=== PATIENT | female | born 1945 | race Caucasian/White ===

== ENCOUNTER 2020-07-27 22:00 | Emergency (ER) | payer MEDICARE, OTHER ==
[~2020-07-27] VITALS: Ht 167.6 cm; Wt 72.0 kg
[2020-07-27 22:03] VITALS: BP 217/64
[2020-07-27] MEDS ORDERED: TETanus/Pertussis (Acell)/Diphther VAC/PF (Tdap-Adult) 0.5ml syringe IMVAC ONE (23:05)
[2020-07-27] MEDS ORDERED: LIDOcaine 1% W/epiNEPHrine 1:200,000 10ml vial IJ ONE (23:05)
--- NOTE | 2020-07-28 16:19 | NUR ---
PT CALLED AND SPOKE WITH HER SISTER. PER DR FARIAS PT WAS NOTIFIED THAT SHE HAS A POSSIBLE RADIAL HEAD FX IN HER INJURED ARM AND THAT SHE COULD COME BACK IN FOR RE-EVALUATION. PT'S SISTER STATED THAT SHE WOULD CALL HER SISTER AND INFORM HER AND GET HER BACK IN THE ER [facility].
== END 2020-07-28 00:17 | disposition home or self-care (01) ==
LOC: ER 22:01
DX: S01.111A Laceration without foreign body of right eyelid and periocular area, initial encounter (principal); R51.9 Headache, unspecified; M25.561 Pain in right knee; M79.601 Pain in right arm; Z20.3 Contact with and (suspected) exposure to rabies; Z88.8 Allergy status to other drugs, medicaments and biological substances; W01.198A Fall on same level from slipping, tripping and stumbling with subsequent striking against other object, initial encounter; Y93.89 Activity, other specified; Y92.89 Other specified places as the place of occurrence of the external cause
CPT/HCPCS: 12011; 70450; 72125; 73090; 73564; 90471; 90715; 99285

== ENCOUNTER 2020-07-28 17:04 | Emergency (ER) | payer MEDICARE, OTHER ==
[~2020-07-28] VITALS: Ht 167.6 cm; Wt 72.7 kg
[2020-07-28 17:12] VITALS: BP 141/58
[2020-07-28] MEDS ORDERED: ibuprofen 200mg tablet PO ONE (17:25)
== END 2020-07-28 17:47 | disposition home or self-care (01) ==
LOC: ER 17:06
DX: S52.121A Displaced fracture of head of right radius, initial encounter for closed fracture (principal); M79.601 Pain in right arm; M25.561 Pain in right knee; Z88.8 Allergy status to other drugs, medicaments and biological substances; W01.0XXA Fall on same level from slipping, tripping and stumbling without subsequent striking against object, initial encounter; Y93.89 Activity, other specified; Y92.89 Other specified places as the place of occurrence of the external cause; Y99.8 Other external cause status
CPT/HCPCS: 99282

== ENCOUNTER 2020-08-02 11:08 | Emergency (ER) | payer MEDICARE, OTHER ==
[~2020-08-02] VITALS: Ht 167.6 cm; Wt 73.2 kg
[2020-08-02 11:16] VITALS: BP 120/75
== END 2020-08-02 11:52 | disposition home or self-care (01) ==
LOC: ER 11:08
DX: S50.01XA Contusion of right elbow, initial encounter (principal); S01.111D Laceration without foreign body of right eyelid and periocular area, subsequent encounter; W18.39XA Other fall on same level, initial encounter; Y93.9 Activity, unspecified; Y92.89 Other specified places as the place of occurrence of the external cause; Y99.8 Other external cause status
CPT/HCPCS: 99281

== ENCOUNTER 2021-10-26 07:32 | Day surgery (SDC) | payer MEDICARE, OTHER ==
[2021-10-24 10:06] LABS: CLARITY,URINE CLOUDY (Clear); COLOR,URINE YELLOW (Yellow); GLUCOSE, URINE NEGATIVE (Neg); KETONES,URINE NEGATIVE (Neg); LEUKOCYTE ESTERASE ,URINE LARGE (Neg); NITRITES, URINE POSITIVE (Neg); OCCULT BLOOD,URINE TRACE-INTACT (Neg); PROTEIN,URINE NEGATIVE (Neg); UROBILINOGEN,URINE 0.2 E.U/dL (0.2-1.0)
[2021-10-24 10:07] LABS: UA COLLECTION TYPE CLN CATCH MIDSTREAM
[2021-10-24 10:15] LABS: BASOPHILS # (AUTO) 0.1 X10'3 (0-0.2); BASOPHILS % (AUTO) 0.9 % (0-1); EOSINOPHILS # (AUTO) 0.2 X10'3 (0-0.9); EOSINOPHILS % (AUTO) 2.5 % (0-6); LYMPHOCYTES # (AUTO) 1.2 X10'3 (1.1-4.8); LYMPHOCYTES % (AUTO) 19.1 % (21-51); MEAN CORPUSCULAR HEMOGLOBIN 28.9 PG (27.0-31.0); MEAN CORPUSCULAR HGB CONC 33.6 g/dL (33.0-36.5); MEAN CORPUSCULAR VOLUME 86.1 FL (78-98); MEAN PLATELET VOLUME 7.4 FL (7.4-10.4); MONOCYTES # (AUTO) 0.3 X10'3 (0-0.9); MONOCYTES % (AUTO) 5.5 % (2-12); NEUTROPHILS # (AUTO) 4.6 X10'3 (1.8-7.7); PRE OP HEMATOCRIT 37.5 % (35.0-45.0); PRE OP HEMOGLOBIN 12.6 g/dL (12.0-16.0); PRE OP PLATELET COUNT 330 X10'3 (140-440); RED BLOOD COUNT 4.36 X10'6 (4.20-5.60); RED CELL DISTRIBUTION WIDTH 14.4 % (11.5-14.5)
[2021-10-24 10:17] LABS: SQUAMOUS EPITHELIAL CELL,UR MANY /LPF (FEW)
[2021-10-24 10:18] LABS: ALBUMIN 3.4 G/DL (3.4-5.0); ALKALINE PHOSPHATASE 92 IU/L (46-116); BLOOD UREA NITROGEN 8 MG/DL (7-18); BUN/CREATININE RATIO 10.4 (6.6-38.0); CALCIUM 8.2 MG/DL (8.5-10.1); CHLORIDE 106 MMOL/L (99-107); CREATININE 0.77 MG/DL (0.40-0.90); FINE GRANULAR CAST 0-3 /LPF (NEGATIVE); PRE OP ALT 18 U/L (30-65); PRE OP ANION GAP 9 (8-16); PRE OP AST 15 U/L (10-37); PRE OP BILIRUB, TOTAL 0.4 MG/DL (0.0-1.0); PRE OP GLUCOSE 100 MG/DL (70-104); PRE OP POTASSIUM 3.9 MMOL/L (3.4-5.1); PRE OP SODIUM 141 MMOL/L (135-145); TOTAL CARBON DIOXIDE 25.9 MMOL/L (24-32); TOTAL PROTEIN 6.8 G/DL (6.4-8.2); eGFR 73 ML/MIN
[2021-10-24 10:19] LABS: BACTERIA,URINE 4+ /HPF (Neg); WBC CLUMPS,URINE FEW /HPF (NEGATIVE)
[2021-10-24 10:20] LABS: WBC,URINE TNTC /HPF (0-4)
[2021-10-24 10:23] LABS: TRANSITIONAL EPI CELLS,URINE FEW /HPF
[~2021-10-26] VITALS: Ht 170.2 cm; Wt 77.6 kg
[2021-10-26] VITALS (11 sets, daily range): BP systolic 141–178; BP diastolic 59–93
[~2021-10-26 07:32] MED LIST: BIOT5TAB PO; CALC-336 PO; CHOL100025 PO; CYAN1TAB41 PO; ESCI-8 PO; LEVO88TA39 PO; PRAV20TA4 PO; ceFAZolin inj. 2,000 MG in dextrose 5%-water 100 ML IV ONE; famotidine 20mg tablet PO ONE; ringers solution, lacted 1,000 ML IV SCH; vancomycin 1,500 MG in NS 300ml IV soln IV ONE
[2021-10-26] MEDS ORDERED: bacitracin 15gm ointment TP ONE (12:00)
[2021-10-26] MEDS ORDERED: BUPIVAcaine/PF 2.5 mg/ml (0.25%) 30ml vial ONE (12:00)
[2021-10-26] MEDS ORDERED: cloNIDine hcl/PF 100mcg/ml inj ONE (12:02)
[2021-10-26] MEDS ORDERED: ROPIVAcaine 0.5% (5mg/ml) 30ml vial ONE (12:02)
[2021-10-26] MEDS ORDERED: fentaNYL/PF 50MCG/1 ML 2ML syringe ONE ×2 (12:03→13:02)
[2021-10-26] MEDS ORDERED: midazolam 1 mg/ML 2ml injection ONE (12:04)
[2021-10-26] MEDS ORDERED: sevoflurane 250ml liquid IH ONE (12:07)
[2021-10-26] MEDS ORDERED: ROPIVAcaine 0.2% (10 MG/5 ML) BOLUS INJECTION POPLITEAL PRN (13:40)
[2021-10-26] MEDS ORDERED: ROPIVAcaine 0.2%/PF PUMP/bolus 545 ML POPLITEAL SCH (13:40)
[2021-10-26] MEDS ORDERED: morphine 2 MG/ML inj. syringe IV PRN (13:40)
[2021-10-26] MEDS ORDERED: HYDROmorphone/PF 0.2 MG/ML SYRINGE IV PRN ×2 (13:40)
[2021-10-26] MEDS ORDERED: ondansetron/PF 4mg/2ml inj IV PRN (13:40)
[2021-10-26] MEDS ORDERED: ringers solution, lacted 1,000 ML IV SCH (13:40)
--- NOTE | 2021-10-26 14:05 | NUR ---
Received from OR via [facility] , accompanied by Anesthesiologist HOMAR and report given by Anesthesiolgist. PATIENT WITH 20G PIV IN RIGHT UE RUNNING LR AT 100. DENIES PAIN AT THIS TIME. LEFT LE IN SPLINT , + CAP REFILL TO TOES. NO DRAINAGE PRESENT TO DRESSINGS. VSS. 10L MASK ON WITH 100% SATURATIONS. WILL CONTINUE TO ASSESS. Addendum: 10/26/21 at 1419 by Conrado Tejada RN, RN Amended: Links added.
[2021-10-26] MEDS ORDERED: propofol inj 20 ML IV ONE (15:09)
[2021-10-26] MEDS ORDERED: glycopyrrolate 0.2mg/ml inj ONE (15:09)
[2021-10-26] MEDS ORDERED: ondansetron/PF 4mg/2ml inj ONE (15:09)
[2021-10-26] MEDS ORDERED: LIDOcaine 1%/PF 5ML 10 MG/ML VIAL ONE (15:09)
[2021-10-26] MEDS ORDERED: dexamethasone sod phosphate 4mg/ml inj. ONE (15:09)
[2021-10-26] MEDS ORDERED: rocuronium 10mg/ml inj IV ONE (15:09)
[2021-10-26] MEDS ORDERED: neostigmine methylsulfate 1 MG/ML 10ml vial ONE (15:09)
[2021-10-26] MEDS ORDERED: ePHEDrine 50MG/ML INJ. ONE (15:09)
[2021-10-26] MEDS ORDERED: acetaminophen 1,000mg/100ml IV 100 ML IV ONE (15:09)
--- NOTE | 2021-10-26 15:43 | NUR ---
ALL DISCHARGE CRITERIA HAS BEEN MET. VSS, PAIN AT A TOLERABLE LEVEL, VOIDING AND ABLE TO SAFELY AMBULATE AND TRANSFER SELF. IV TAKEN OUT WITHOUT ANY COMPLICATIONS. ALL DISCHARGE INSTRUCTIONS COVERED WITH PATIENT AND ALL QUESTIONS ANSWERED. PATIENT TAKEN OUT VIA WHEELCHAIR TO PERSONAL VEHICLE WHERE FAMILY/FRIEND DROVE PATIENT HOME. MAINTAINED NWB STATUS TO LEFT FOOT PER MD INSTRUCTIONS. MD VILCHIS AWARE PATIENT NEEDS T3 PAIN MEDS CALLED TO PATIENTS PHARMACY. VSS. DENIES PAIN. PATIENT WEDGE SENT WITH HER AND DAUGHTER ANGELITO GIVEN ALL DC INSTRUCTIONS WELL. ALL QUESTIONS ANSWERED FOR FAMILY WELL PATIENT. Addendum: 10/26/21 at 1549 by Conrado Tejada RN, RN Amended: Links added.
[2021-10-30] MEDS ORDERED: HYDR-3965 PO (15:47)
== END 2021-10-26 15:45 | disposition home or self-care (01) ==
LOC: PAS 07:32
PROVIDERS: ATTEND Podiatrist Foot & Ankle Surgery
DX: S82.52XA Displaced fracture of medial malleolus of left tibia, initial encounter for closed fracture (principal); K21.9 Gastro-esophageal reflux disease without esophagitis; G89.18 Other acute postprocedural pain; F32.9 Major depressive disorder, single episode, unspecified; M19.90 Unspecified osteoarthritis, unspecified site; X58.XXXA Exposure to other specified factors, initial encounter; Y93.89 Activity, other specified; Y92.89 Other specified places as the place of occurrence of the external cause; Y99.8 Other external cause status; Z79.899 Other long term (current) drug therapy; Z90.710 Acquired absence of both cervix and uterus; Z98.890 Other specified postprocedural states; Z88.6 Allergy status to analgesic agent; Z88.8 Allergy status to other drugs, medicaments and biological substances; Z87.891 Personal history of nicotine dependence
CPT/HCPCS: 27766; 36415; 64450; 73610; 76942; 80053; 81001; 82948; 85025; 87811; 93005; A6223; C1713; J0131; J0690; J0735; J1100; J2250; J2405; J2704; J2710; J2795; J3010; J3370; J3490; J7030; J7040; J7060; J7120; Z7506; Z7508; Z7512; 76000; A4618; A6253; A6449; A7000

== ENCOUNTER 2023-05-08 12:16 | Day surgery (SDC) | payer MEDICARE, OTHER ==
[2023-05-01 10:31] LABS: BASOPHILS # (AUTO) 0.1 X10'3 (0-0.2); BASOPHILS % (AUTO) 0.8 % (0-1); EOSINOPHILS # (AUTO) 0.4 X10'3 (0-0.9); EOSINOPHILS % (AUTO) 5.7 % (0-6); HEMOGLOBIN 14.1 g/dl (12.0-16.0); LYMPHOCYTES # (AUTO) 1.3 X10'3 (1.1-4.8); LYMPHOCYTES % (AUTO) 21.1 % (21-51); MEAN CORPUSCULAR HEMOGLOBIN 29.6 PG (27.0-31.0); MEAN CORPUSCULAR HGB CONC 33.7 g/dL (33.0-36.5); MEAN CORPUSCULAR VOLUME 87.8 FL (78-98); MEAN PLATELET VOLUME 7.2 FL (7.4-10.4); MONOCYTES # (AUTO) 0.4 X10'3 (0-0.9); MONOCYTES % (AUTO) 6.4 % (2-12); NEUTROPHILS # (AUTO) 4.2 X10'3 (1.8-7.7); PLATELET COUNT 284 X10'3 (140-440); RED BLOOD COUNT 4.78 X10'6 (4.20-5.60); RED CELL DISTRIBUTION WIDTH 14.5 % (11.5-14.5); WHITE BLOOD COUNT 6.3 X10'3 (4.5-11.0)
[2023-05-01 10:41] LABS: APTT 26 SECONDS (22-32); INR 0.9 INR; PROTHROMBIN TIME 10.2 SECONDS (9.0-12.0)
[2023-05-01 10:44] LABS: ALANINE AMINOTRANSFERASE 20 U/L (12-78); ALBUMIN 3.5 G/DL (3.4-5.0); ALKALINE PHOSPHATASE 79 IU/L (46-116); ANION GAP 7 (8-16); ASPARTATE AMINO TRANSFERASE 15 U/L (10-37); BILIRUBIN,TOTAL 0.5 MG/DL (0.1-1.0); BLOOD UREA NITROGEN 16 MG/DL (7-18); BUN/CREATININE RATIO 20.8 (10.0-20.0); CALCIUM 8.7 MG/DL (8.5-10.1); CHLORIDE 107 MMOL/L (99-107); CREATININE 0.77 MG/DL (0.40-0.90); GLUCOSE 107 MG/DL (70-104); POTASSIUM 4.1 MMOL/L (3.5-5.1); SODIUM 142 MMOL/L (135-145); TOTAL CARBON DIOXIDE 28.4 MMOL/L (24-32); TOTAL PROTEIN 6.9 G/DL (6.4-8.2); eGFR 73 ML/MIN
[2023-05-08] VITALS (12 sets, daily range): BP systolic 113–154; BP diastolic 63–74; PULSE 53–90; RESP 15–25; TEMP 97.2; O2SAT 91–100
[~2023-05-08] VITALS: Ht 170.2 cm; Wt 72.6 kg
[2023-05-08] MEDS: ringers solution, lacted 1,000 ML IV SCH (05:30)
[2023-05-08] MEDS: famotidine 20mg tablet PO ONE (05:30)
[2023-05-08] MEDS: cefazolin 2gm/D5W 100mL 100 ML IV ONE (05:30)
[~2023-05-08 12:16] MED LIST changes: -ceFAZolin inj. 2,000 MG in dextrose 5%-water 100 ML IV ONE; -famotidine 20mg tablet PO ONE; -ringers solution, lacted 1,000 ML IV SCH; -vancomycin 1,500 MG in NS 300ml IV soln IV ONE
[2023-05-08] MEDS ORDERED: ringers solution, lacted 1,000 ML IV SCH (13:30)
[2023-05-08] MEDS ORDERED: fentaNYL/PF 50MCG/1 ML 2ML syringe IV PRN ×2 (13:30)
[2023-05-08] MEDS ORDERED: hydrALAZINE 20mg/ml inj. IV PRN (13:30)
[2023-05-08] MEDS ORDERED: labetalol 20mg/4ml (5mg/ml) syringe IV PRN (13:30)
[2023-05-08] MEDS ORDERED: ondansetron/PF 4mg/2ml inj IV PRN (13:30)
[2023-05-08] MEDS ORDERED: morphine 2 MG/ML inj. syringe IV PRN (13:30)
[2023-05-08] MEDS ORDERED: LIDOcaine 1% 30ml preserv. free vial ONE (13:36)
[2023-05-08] MEDS ORDERED: BUPIVAcaine/PF 2.5 mg/ml (0.25%) 30ml vial ONE (13:37)
[2023-05-08] MEDS ORDERED: methylene blue (5mg/ml) 50mg/10ml ampul IV ONE (13:37)
[2023-05-08] MEDS ORDERED: LIDOcaine 2% (20mg/ml) 5ml vial ONE (14:40)
[2023-05-08] MEDS ORDERED: midazolam 1 mg/ML 2ml injection ONE (14:40)
[2023-05-08] MEDS ORDERED: fentaNYL/PF 50MCG/1 ML 2ML syringe ONE (14:40)
[2023-05-08] MEDS ORDERED: propofol inj 20 ML IV ONE (14:40)
[2023-05-08] MEDS ORDERED: ondansetron/PF 4mg/2ml inj ONE (14:41)
[2023-05-08] MEDS ORDERED: acetaminophen 1,000mg/100ml IV 100 ML IV ONE (14:41)
[2023-05-08] MEDS ORDERED: desflurane 240ml liquid inh. IH ONE (14:47)
[2023-05-08] MEDS ORDERED: dexamethasone sod phosphate 10mg/ml inj ONE (14:47)
[2023-05-08] MEDS ORDERED: hydrALAZINE 20mg/ml inj. IV ONE (15:18)
[2023-05-08] MEDS: LIDOcaine-PF 1% 20mL vial 20 ML VIAL IJ ONE (15:18)
[2023-05-08] MEDS: BUPIVAcaine/PF 2.5 mg/ml (0.25%) 30ml vial IJ ONE (15:20)
[2023-05-08] MEDS: morphine 4 MG/ML inj SYRINge IV PRN (16:35)
== END 2023-05-08 17:43 | disposition home or self-care (01) ==
LOC: PAS 12:16
PROVIDERS: ATTEND Surgery
DX: D05.11 Intraductal carcinoma in situ of right breast (principal); J44.9 Chronic obstructive pulmonary disease, unspecified; I10 Essential (primary) hypertension; F41.9 Anxiety disorder, unspecified; F32.A Depression, unspecified; M19.90 Unspecified osteoarthritis, unspecified site; Z87.891 Personal history of nicotine dependence; Z79.899 Other long term (current) drug therapy; Z88.8 Allergy status to other drugs, medicaments and biological substances; Z88.5 Allergy status to narcotic agent; Z98.890 Other specified postprocedural states; Z79.01 Long term (current) use of anticoagulants; Z80.3 Family history of malignant neoplasm of breast
CPT/HCPCS: 19301; 36415; 76098; 80053; 82948; 85025; 85610; 85730; 93005; J0131; J0360; J0690; J1100; J2250; J2270; J2405; J2704; J3010; J3490; J7030; J7120; Z7506; Z7508; Z7512; 88307; 96360; A4215; A4618; A6258; A7000; Q9968